=== PATIENT | male | born 1985 | race Caucasian/White ===

== ENCOUNTER 2022-02-25 14:42 | Emergency (ER) | payer MEDICAID, SELFPAY ==
[2022-02-25] VITALS (37 sets, daily range): BP systolic 110–130; BP diastolic 63–79; PULSE 69–94; RESP 9–25; TEMP 37.1; O2SAT 96–99
--- NOTE | 2022-02-25 14:45 | RT.EKG_ITS ---
APPROVED REPORT Exam: Resting ECG Reason for Exam: back to chest sporadic pain. Patient Location: E HR:78 bpm ECG Measurements Heart Rate 78 AXIS NH 189 P 75 QRSd 88 QRS 96 QT 365 T 19 QTc 416 Conclusion Sinus rhythm...normal P axis, V-rate 60- [address] elevation, anterior leads...ST >0.15mV in V1-V4. Sinus. Normal axis. 1mm ST elevation in V2-3. No STEMI. No old EKG to compare. I have reviewed and interpreted ECG and agree with software generated interpretation.
[2022-02-25 15:22] LABS: Abs Immature Grans 0.03 10^3/uL (0.0-0.06); Absolute Basophil Count 0.03 10^3/uL (0.0-0.2); Absolute Eosinophil Count 0.12 10^3/uL (0.0-0.7); Absolute Lymphocyte Count 2.38 10^3/uL (1.2-3.4); Absolute Monocyte Count 0.62 10^3/uL (0.1-0.8); Absolute Neutrophil Count 5.81 10^3/uL (1.2-6.7); Basophils % 0.3; Eosinophils % 1.3; HCT 41.9 % (40.0-50.0); HGB 14.3 g/dL (13.5-17.5); Immature Grans % 0.3; Lymphocytes % 26.5; MCH 31.8 pg (27.0-33.0); MCHC 34.1 % (32.0-36.0); MCV 93 fL (80-95); MPV 9.2 fL (8.0-11.0); Monocytes % 6.9; Neutrophils % 64.7; Platelet Count 280 10^3/uL (130-400); RBC 4.49 10^6/uL (4.36-5.78); RDW 13.2 % (11.8-14.1); RDW-SD 45.7 fL; WBC 8.99 10^3/uL (4.4-10.8)
--- NOTE | 2022-02-25 15:29 | W.ED.GENAD ---
Discharge Plan Disposition Patient Disposition: HOME Condition: Stable Discharge Details Clinical Impression: Chest pain Primary Care Provider: Unknown,Unknown ED Provider: Derek Lubin Home Meds and New Rx's Prescriptions: No Action No Known Home Meds Discharge Instructions Instructions: Chest Pain (ED) Additional Instructions: Take ibuprofen and Tylenol as needed for pain that Recommend following up with your primary care physician with persistent discomfort Return earlier should you have new or worsening Discharge Data Discharge Date/Time-TO BE ENTERED AT DEPARTURE: 02/25/22 18:23 Medical Decision Making <RADHA Joseph - Last Filed: 02/28/22 21:02> Patient appears well I think 1 troponin and D-dimer is reasonable And will hold imaging until D-dimer returns EKG is abnormal and we do not have comparison so troponin is reasonable not I think the patient is stable for discharge home as long as his labs are all within normal limits She will be transitioned to oncoming provider Medical Records Medical records reviewed: Yes I reviewed the patient's medical records. <RADHA Nicole - Last Filed: 02/25/22 18:07> Patient appears well I think 1 troponin and D-dimer is reasonable And will hold imaging until D-dimer returns EKG is abnormal and we do not have comparison so troponin is reasonable not I think the patient is stable for discharge home as long as his labs are all within normal limits She will be transitioned to oncoming provider 1530: Derek Lubin PA-C I assumed care of this 37-year-old gentleman from my colleague RADHA Sinha, please see her initial HPI and examination. At time of signout pending chest x-ray, if chest x-ray is unremarkable plan to discharge as set forth by RADHA Sinha. Discussed benign chest x-ray with patient. He is currently asymptomatic. Discussed the importance of outpatient follow-up. Standard discharge and return precautions were provided. Patient understands, is agreeable to this plan, and has no additional questions or concerns upon discharge. This documentation was generated using [employer] system, please disregard any oddities of phrase or misspellings. Imaging Data Radiologic Study: Attestation: I personally reviewed and interpreted this imaging study as follows: Imaging: X-Ray Radiologist's impression: PROCEDURE INFORMATION: Exam: XR Chest Exam date and time: 02/25/2022 5:24 PM Age: 37 years old Clinical indication: Right-sided; Patient HX: Right sided chest pain TECHNIQUE: Imaging protocol: Radiologic exam of the chest. Views: 2 views. COMPARISON: No relevant prior studies available. FINDINGS: Lungs: Mild hyperinflation which is nonspecific and could reflect air trapping from an upper respiratory infection or reactive airway disease. No peripheral infiltrates. No edema. Pleural spaces: No pleural effusion. No pneumothorax. Heart/Mediastinum: Normal heart size. Bones/joints: Thoracic spine degenerative disease IMPRESSION: 1. Clear lungs and pleural space. Mild hyperinflation which is nonspecific. 2. Normal heart and mediastinal silhouette. 3. Thoraci. c spine degenerative change HPI <RADHA Joseph - Last Filed: 02/28/22 21:02> General Date/Time Provider Initiated Documentation: 02/25/22 14:55. HPI Narrative: This 37-year-old male presents with reports of intermittent right-sided chest pain. He states he has been going on for 1 to 2 years. He states he was evaluated with chest x-ray at the primary care physician several weeks ago. He states his last episode of pain was last evening. He states that occasionally there was exertion, upon viral process. He denies any known reproducible symptoms. He denies any trauma. He does smoke tobacco and marijuana. He has not used illicit drugs for the past 10 years per patient. Denies any calf pain or swelling. Denies recent-surgeries, long drives. Denies history of coagulopathy. Related Data Home Medications Medication Instructions Recorded Confirmed Unknown [No Known Home Meds] 02/25/22 02/25/22 Allergies Allergy/AdvReac Type Severity Reaction Status Date / Time No Known Allergies Allergy Unverified 02/25/22 14:53 General Stated Complaint: Nk/Back Pain BRITANY: 4 Review of Systems <RADHA Joseph - Last Filed: 02/28/22 21:02> All systems reviewed & are unremarkable except as noted in HPI and below PFSH <RADHA Joseph - Last Filed: 02/28/22 21:02> All Active Problems (Updated 02/25/22 @ 15:37 by RADHA Joseph) Chest pain (Acute) Social History Smoking/Tobacco Use Status: Current every day Tobacco Type: cigarettes Smoking risk assessment performed?: Yes Alcohol Intake: never Drug use: Daily Substance use type: marijuana Do you feel safe at home: Yes Do you feel safe in your relationship?: Yes Exam <RADHA Joseph - Last Filed: 02/28/22 21:02> Const General: cooperative and comfortable Orientation: alert and oriented x3 Eyes Pupils: PERRL Chest Chest: normal inspection of the chest Resp Effort & Inspection: normal respiratory effort Auscultation: clear to auscultation bilaterally Cardio Rate: regular rate Rhythm: regular rhythm GI Other: No abdominal tenderness Skin General skin exam: no rashes or lesions noted Neuro General: patient alert and patient oriented x3 Extrem Other: No calf swelling or tenderness Course <RADHA Joseph - Last Filed: 02/28/22 21:02> Vital Signs Vital signs: Vital Signs Temperature 37.1 C 02/25/22 14:47 Pulse 90 02/25/22 14:47 Respiratory Rate 18 02/25/22 14:47 Blood Pressure 130/68 02/25/22 14:47 Pulse Oximetry 99 02/25/22 14:47 Temperature 37.1 C 02/25/22 14:47 Temperature Source Temporal Artery Scan 02/25/22 14:47 Pulse 90 02/25/22 14:47 Respiratory Rate 18 02/25/22 14:47 Respiratory Effort Non-Labored 02/25/22 14:52 Blood Pressure 130/68 02/25/22 14:47 Blood Pressure Position Sitting 02/25/22 14:47 Pulse Oximetry 99 02/25/22 14:47 Oxygen Delivery Method Room Air 02/25/22 14:47 Oxygen Flow Rate 0 02/25/22 14:47 Pain Level 0 02/25/22 14:47 Lab/Test Results Lab/Test Results: Laboratory Tests Range/Units 02/25/22 02/25/22 15:10 17:59 WBC (4.4-10.8) 10^3/uL 8.99 RBC (4.36-5.78) 10^6/uL 4.49 Hgb (13.5-17.5) g/dL 14.3 Hct (40.0-50.0) % 41.9 MCV (80-95) fL 93 MCH (27.0-33.0) pg 31.8 MCHC (32.0-36.0) % 34.1 RDW (11.8-14.1) % 13.2 Plt Count (130-400) 10^3/uL 280 MPV (8.0-11.0) fL 9.2 Immature Gran % 0.3 Neutrophils % 64.7 Lymphocytes % 26.5 Monocytes % 6.9 Eosinophils % 1.3 Basophils % 0.3 Nucleated RBC % (0.0-0.3) % 0.0 Absolute Neutrophils (1.2-6.7) 10^3/uL 5.81 Absolute Lymphocytes (1.2-3.4) 10^3/uL 2.38 Absolute Monocytes (0.1-0.8) 10^3/uL 0.62 Absolute Eosinophils (0.0-0.7) 10^3/uL 0.12 Absolute Basophils (0.0-0.2) 10^3/uL 0.03 Troponin I Cancelled Sign Out <RADHA Joseph - Last Filed: 02/28/22 21:02> Sign Out Data: Sign Out Comment: dc pending normal dimer Last updated by Mercy Sinha PA at 02/25/22 15:49
[2022-02-25 15:39] LABS: ALT 24 U/L (16-63); AST 16 U/L (15-37); Albumin 3.8 g/dL (3.4-5.0); Alkaline Phosphatase 60 U/L (46-116); Anion Gap 7.1 mmol/L (3-11); BUN 10 mg/dL (7-18); Bilirubin, Total 0.5 mg/dL (0.2-1.0); CO2 29.9 mmol/L (21.0-32.0); CREATININE 1.2 mg/dL (0.70-1.30); Calcium 9.2 mg/dL (8.5-10.1); Chloride 103 mmol/L (98-107); Estimated GFR 80.38 (mL/min/1.73m2); Glucose 67 mg/dL (74-106); Potassium 3.7 mmol/L (3.5-5.1); Sodium 140 mmol/L (136-145); Troponin I < 50 ng/L (<or=60)
[2022-02-25 16:11] LABS: D-Dimer 177 ng/mlFEU (<500)
--- NOTE | 2022-02-25 16:15 | DI.RAD_ITS ---
Exam(s) XR CHEST 2V PA LATERAL EXAM: XR CHEST 2V PA LATERAL CLINICAL HISTORY: right chest pain TECHNIQUE: 2D digital imaging was performed. COMPARISON: No exams were available for comparison FINDINGS: HEART: Normal size. Aorta: PULMONARY VASCULATURE: Normal. LUNGS: Clear. PLEURAL SPACE: No pleural effusion or pneumothorax. BONE:Unremarkable for age. IMPRESSION: No acute abnormality. DATA REPOSITORY: RADIATION DOSE DELIVERED:
--- NOTE | 2022-02-25 17:51 | DI.VRAD_ITS ---
PROCEDURE INFORMATION: Exam: XR Chest Exam date and time: 02/25/2022 5:24 PM Age: 37 years old Clinical indication: Right-sided; Patient HX: Right sided chest pain TECHNIQUE: Imaging protocol: Radiologic exam of the chest. Views: 2 views. COMPARISON: No relevant prior studies available. FINDINGS: Lungs: Mild hyperinflation which is nonspecific and could reflect air trapping from an upper respiratory infection or reactive airway disease. No peripheral infiltrates. No edema. Pleural spaces: No pleural effusion. No pneumothorax. Heart/Mediastinum: Normal heart size. Bones/joints: Thoracic spine degenerative disease IMPRESSION: 1. Clear lungs and pleural space. Mild hyperinflation which is nonspecific. 2. Normal heart and mediastinal silhouette. 3. Thoraci. c spine degenerative change Dictated and Authenticated by: Boom Bautista MD. Ordering:TYLER Madrid MD
== END 2022-02-25 18:23 | disposition home or self-care (01) ==
PROVIDERS: Physician Assistant; Emergency Provider Physician Assistant
DX: R07.9 Chest pain, unspecified (principal); F17.210 Nicotine dependence, cigarettes, uncomplicated
CPT/HCPCS: 80053; 93005; 99283; 71046; 84484; 85025; 85379; 93010; 99285